=== PATIENT | male | born 1975 | race Caucasian/White ===

== ENCOUNTER → 2017-02-19 | Outpatient (CLI) | payer BC ==
--- NOTE | 2017-02-19 10:06 | RAD ---
Abdominal ultrasound, 02/19/2017: History: Periumbilical pain, previous umbilical hernia repair The area of clinical concern was carefully scanned. There appear to be 2 separate fascial defects in the periumbilical region. There are hypoechoic densities extending into the subcutaneous soft tissues at these 2 levels, probably representing herniated abdominal fat. No definite bowel is evident. CT scanning would best delineate these findings, if clinically indicated.
== END | disposition home or self-care (01) ==
LOC: US 07:40
PROVIDERS: ATTEND Family Medicine
DX: R10.33 Periumbilical pain (principal); Z98.890 Other specified postprocedural states
CPT/HCPCS: 76705

== ENCOUNTER → 2018-05-18 | Outpatient (CLI) | payer BC ==
--- NOTE | 2018-05-18 17:51 | RAD ---
EXAM: 3 views left ankle DATE: 05/18/2018 3:09 PM INDICATION: TWISTED ANKLE YESTERDAY AND FELL ON WRIST COMPARISON: No Prior FINDINGS: No evidence of acute fracture or dislocation. Ankle joint degenerative changes with anterior osteophytes are seen. Calcaneal enthesopathy. Apparent pes planus incompletely assessed on this nonweightbearing view. Mortise is congruent. Talar dome is intact.. IMPRESSION: 1. No evidence of acute fracture or dislocation. 2. Calcaneal enthesopathy. 3. Ankle joint degenerative changes with small anterior osteophytes. Electronically signed by: Colby San MD (05/18/2018 5:46 PM) [facility]
--- NOTE | 2018-05-18 17:51 | RAD ---
EXAM: PA, oblique and lateral views of the left wrist DATE: 05/18/2018 3:05 PM INDICATION: TWISTED ANKLE YESTERDAY AND FELL ON WRIST COMPARISON: No Prior FINDINGS/ IMPRESSION: 1. No evidence of acute fracture or dislocation. 2. Joint spaces are preserved without significant degenerative/proliferative change. 3. No significant soft tissue swelling. Electronically signed by: Colby San MD (05/18/2018 5:47 PM) [facility]
== END | disposition home or self-care (01) ==
LOC: RAD 14:50
PROVIDERS: ATTEND Family Medicine
DX: M77.52 Other enthesopathy of left foot and ankle (principal); M19.072 Primary osteoarthritis, left ankle and foot; M25.772 Osteophyte, left ankle; M25.532 Pain in left wrist
CPT/HCPCS: 73110; 73610